=== PATIENT | female | born 1995 | race American Indian/Alaskan Native ===

== ENCOUNTER 2020-08-31 17:24 | Emergency (ER) | payer SELFPAY ==
[2020-08-31 18:18] VITALS: BP 131/72
[2020-08-31 18:40] LABS: Bacteria,Urine 1+ /HPF (Negative); Bilirubin,Urine NEG (Negative); Blood,Urine SM (Negative); Color,Urine Amber (Yellow); Mucus,Urine 3+ /HPF; Urobilinogen,Urine < 2.0 mg/dL (<2.0)
[2020-08-31 18:56] LABS: Hematocrit 42.7 % (30.3-42.9); Hemoglobin 14.2 gm/dl (10.1-14.3); Mean Corpuscular HGB Conc 33 % (30-34); Mean Corpuscular Volume 84 fl (79-97); Platelet Count 331 K/mm3 (140-440); Red Blood Count 5.12 M/mm3 (3.65-5.03); Red Cell Distribution Width 13.5 % (13.2-15.2)
[2020-08-31 19:17] LABS: Alanine Aminotransferase 20 units/L (7-56); Albumin 5.1 g/dL (3.9-5); Blood Urea Nitrogen 10 mg/dL (7-17); Calcium 9.8 mg/dL (8.4-10.2); Hemolysis Index 10
[2020-08-31 19:19] LABS: BUN/Creatinine Ratio 14
[2020-08-31 20:28] LABS: Total Cells Counted 100
[2020-08-31 20:32] LABS: Platelet Estimate Consistent w Auto; RBC Morphology Normal
--- NOTE | 2020-08-31 21:05 | Emergency Department Report ---
ED Abdominal Pain HPI - General Chief Complaint: Abdominal Pain Stated Complaint: VOMITTING Source: patient, EMS Mode of arrival: Ambulatory Limitations: No Limitations - History of Present Illness Initial Comments: 24-year-old -[place] female presents to the emergency room complaining of pubic abdominal pain with nausea and vomiting that started approximately 3 AM today. Patient reports rest makes it better movement, makes it worse. Denies any dysuria denies any vaginal discharge no vaginal bleeding. Patient reports her last menstrual period was 08/24/2020. She last vomited 1 hour prior to seeing me. Patient is a history of anxiety and takes Celexa. MD Complaint: abdominal pain -: This morning Time: 03:00 Location: suprapubic Migration to: no migration Severity scale (0 -10): 6 Quality: aching, sharp Consistency: intermittent Improves With: rest Worsens With: movement Associated Symptoms: nausea, vomiting, diarrhea, chills, hematemesis. denies: fever, dysuria - Related Data LMP Date: 08/24/20 Previous Rx's Medication Instructions Recorded Last Taken Type Nitrofurantoin Letcher/M-Cryst 100 mg PO Q12HR 10 Days #20 capsule 08/31/20 Unknown Rx [Macrobid CAP] Ondansetron [Zofran Odt] 4 mg PO Q8HR #12 tab.rapdis 08/31/20 Unknown Rx Allergies Allergy/AdvReac Type Severity Reaction Status Date / Time No Known Allergies Allergy Verified 08/31/20 18:18 ED Review of Systems ROS: Stated complaint: VOMITTING Other details as noted in HPI Comment: All other systems reviewed and negative ED Past Medical Hx - Past Medical History Hx Asthma: Yes - Surgical History Hx Cholecystectomy: Yes - Social History Smoking Status: Never Smoker Substance Use Type: None - Medications Home Medications: Home Medications Medication Instructions Recorded Confirmed Last Taken Type Nitrofurantoin Letcher/M-Cryst 100 mg PO Q12HR 10 Days #20 capsule 08/31/20 Unknown Rx [Macrobid CAP] Ondansetron [Zofran Odt] 4 mg PO Q8HR #12 tab.rapdis 08/31/20 Unknown Rx ED Physical Exam - General Limitations: No Limitations General appearance: alert, in no apparent distress - Head Head exam: Present: atraumatic, normocephalic - Eye Eye exam: Present: normal appearance - ENT ENT exam: Present: mucous membranes moist - Neck Neck exam: Present: normal inspection - Respiratory Respiratory exam: Present: normal lung sounds bilaterally. Absent: respiratory distress - Cardiovascular Cardiovascular Exam: Present: regular rate, normal rhythm. Absent: systolic murmur, diastolic murmur, rubs, gallop - GI/Abdominal GI/Abdominal exam: Present: soft, tenderness (llq), normal bowel sounds - Extremities Exam Extremities exam: Present: normal inspection. Absent: pedal edema - Back Exam Back exam: Present: normal inspection - Neurological Exam Neurological exam: Present: alert, oriented X3, normal gait - Psychiatric Psychiatric exam: Present: normal affect, normal mood - Skin Skin exam: Present: warm, dry, intact, normal color. Absent: rash ED Course Vital Signs 08/31/20 18:14 Temperature 99.3 F Pulse Rate 69 Respiratory 18 Rate Blood Pressure 131/72 O2 Sat by Pulse 100 Oximetry ED Medical Decision Making - Lab Data Result diagrams: 08/31/20 18:38 08/31/20 18:38 - Medical Decision Making 24-year-old -[place] female presents to the emergency room complaining of pubic abdominal pain with nausea and vomiting that started approximately 3 AM today. Patient reports rest makes it better movement, makes it worse. Denies any dysuria denies any vaginal discharge no vaginal bleeding. Patient reports her last menstrual period was 08/24/2020. She last vomited 1 hour prior to seeing me. Patient is a history of anxiety and takes Celexa. Patient's urine shows a urinary tract infection with positive nitrates. We will treat with Macrobid. Instructed patient to take Zofran as needed for the nausea. Increase her water intake Tylenol or ibuprofen for pain management. Patient verbalized understanding. Critical care attestation.: If time is entered above; I have spent that time in minutes in the direct care of this critically ill patient, excluding procedure time. ED Disposition Clinical Impression: UTI (urinary tract infection) Qualifiers: Urinary tract infection type: site unspecified Hematuria presence: without hematuria Qualified Code(s): N39.0 - Urinary tract infection, site not specified Disposition: TO HOME OR SELFCARE Is pt being admited?: No Does the pt Need Aspirin: No Condition: Stable Instructions: Urinary Tract Infection, Adult, [id number], Abdominal Pain (ED) Additional Instructions: Complete antibiotics as prescribed. Tylenol or ibuprofen for pain. Increase your water intake by 2 to 3 L daily. Be sure to void after intercourse. Prescriptions: Nitrofurantoin Letcher/M-Cryst [Macrobid CAP] 100 mg PO Q12HR 10 Days #20 capsule Ondansetron [Zofran Odt] 4 mg PO Q8HR #12 tab.[email or web address] Referrals: GILLIAN MOREL [Other] - 3-5 Days
== END 2020-08-31 21:17 | disposition home or self-care (01) ==
LOC: ED 17:24
DX: N39.0 Urinary tract infection, site not specified (principal); J45.909 Unspecified asthma, uncomplicated; Z79.899 Other long term (current) drug therapy; Z90.49 Acquired absence of other specified parts of digestive tract
CPT/HCPCS: 36415; 80053; 81001; 83690; 84703; 85007; 85025; 99283

== ENCOUNTER 2021-03-29 14:45 | Emergency (ER) | payer OTHER ==
[2021-03-29 15:15] VITALS: BP 121/80
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
== END 2021-03-29 16:29 | disposition home or self-care (01) ==
LOC: ED 14:45
DX: Z02.79 Encounter for issue of other medical certificate (principal); Z87.828 Personal history of other (healed) physical injury and trauma; J45.909 Unspecified asthma, uncomplicated; Z90.49 Acquired absence of other specified parts of digestive tract
CPT/HCPCS: 99281